=== PATIENT | female | born 1955 | race Caucasian/White ===

== ENCOUNTER 2018-12-01 09:53 | Emergency (ER) | payer BC ==
--- NOTE | 2018-12-01 10:01 | ED Physician Chart ---
ED Chief Complaint/HPI - Patient Information Date Seen:: 12/01/18 Time Seen:: 09:40 Chief Complaint:: Weakness History of Present Illness:: onset x 24 hours of H/As, weakness, unsteady gait, and paresthesias; pt denies trauma, neck pain, C/P, SOB, Abd. Pain, A/N/V/D/C, fever, chills, or urinary s/s Historian:: Patient Review:: Nurse's Note Reviewed, Old Chart Reviewed ED Review of Systems - Review of Systems General/Constitutional: No fever, No chills, No weight loss, Weakness, No diaphoresis, No edema, No loss of appetite Skin: No skin lesions, No rash, No bruising Head: Headache, No light-headedness Eyes: No loss of vision, No pain, No diplopia ENT: No earache, No nasal drainage, No sore throat, No tinnitus Neck: No neck pain, No swelling, No thyromegaly, No stiffness, No mass noted Cardio Vascular: No chest pain, No palpitations, No PND, No orthopnea, No edema Pulmonary: No SOB, No cough, No sputum, No wheezing GI: No nausea, No vomiting, No diarrhea, No pain, No melena, No hematochezia, No constipation, No hematemesis G/U: No dysuria, No frequency, No hematuria, No nacturia [employer]: No vaginal discharge, No abnormal vaginal bleed, No contraction Musculoskeletal: No bone or joint pain, No back pain, No muscle pain Endocrine: No polyuria, No polydipsia Psychiatric: No prior psych history, No depression, No anxiety, No suicidal ideation, No homicidal ideation, No auditory hallucination, No visual hallucination Hematopoietic: No bruising, No lymphadenopathy Allergic/Immuno: No urticaria, No angioedema Neurological: No syncope, No focal symptoms, Weakness, No paresthesia, Headache , No seizure, No dizziness, No confusion, No vertigo ED Past Medical History - Past Medical History Obtainable: Yes Past Medical History: HTN, Dyslipidemia, Thyroid disorder Family History: HTN Social History: Non Smoker, No Alcohol, No Drug Use, Surgical History: other (Breast Implants) Psychiatricy History: None Medication: Reviewed Family Medical History - Family Member Mother History Unknown: Yes ED Physical Exam - Physical Examination General/Constitutional: Awake, Well-developed, well-nourished, Alert, No distress, GCS 15, Non-toxic appearing, Ambulatory Head: Atraumatic Eyes: Lids, conjuctiva normal, PERRL, EOMI Skin: Nl inspection, No rash, No skin lesions, No ecchymosis, Well hydrated, No lymphadenopathy ENMT: External ears, nose nl, TM canals nl, Nasal exam nl, Lips, teeth, gums nl , Oropharynx nl, Tonsils nl Neck: Nontender, Full ROM w/o pain, No JVD, No nuchal rigidity, No bruit, No mass, No stridor Other Neck comments:: supple; no meningeal signs; no cervical tenderness; no bruits Respiratory: Nl effort/Exclusion, Clear to Auscultation, No Wheeze/Rhonchi/Rales Cardio Vascular: RRR, No murmur, gallop, rubs, NL S1 S2, Carotid/Femoral/Distal pulses equal bilaterally GI: No tenderness/rebounding/guarding, No organomegaly, No hernia, Normal BS's, Nondistended, No mass/bruits, No McBurney tenderness, Rectum exam nl Other GI comments:: no pulsatile masses : No CVA tenderness Extremities: No tenderness or effusion, Full ROM, normal strength in all extremities, No edema, Normal digits & nails Neuro/Psych: Alert/oriented, DTR's symmetric, Normal sensory exam, Normal motor strength, Judgement/insight normal, Mood normal, Normal gait Other Neuro/Psych comments:: + Left Facial Droop; decreased motor and sensory functions of left facial region , RUE, and RLE; Gait: Unsteady Misc: Normal back, No paraspinal tenderness ED Labs/Radiology/EKG Results - Lab Results Comments:: Reviewed - Radiology Results Comments:: NAD - EKG Interpretations EKG Time:: 09:57 Rate & Rhythm: 91; NSR Comments:: non-specific st-t changes ED Septic Shock - . Is Septic Shock (SBP<90, OR Lactate>4 mmol\L) present?: No ED Reassessment (Disposition) - Reassessment Reassessment Condition:: Improved - Diagnosis Diagnosis:: Weakness; Hypokalemia; Hyperlipidemia; HTN; Neurological Symptoms; TIA; CVA - Aftercare/Follow up Instructions Aftercare/Follow-Up Instructions:: Counseled pt regarding lab results/diagnosis & need follow up, Counseled pt & family regarding lab results/diagnosis & need follow up - Patient Disposition Discharge/Transfer:: Acute Care (other hosp) Accepting Physician:: Dr. Austin Time Called:: 1020 Time Responded:: 10:20 Admitted to:: ICU Spoke to:: Dr. Austin Admitting Medical Physician:: Dr. Austin Condition at Disposition:: Stable, Improved (pt to be transferred via [facility] as a direct hospital admission to [facility] Neuro ICU under Dr. Austin)
[2018-12-01 10:17] LABS: % BASOPHILS 0.3 % (0.0-2.0); % EOSINOPHILS 1.9 % (0.0-5.0); % LYMPHOCYTES 33.2 % (20.0-50.0); % MONOCYTES 7.3 % (2.0-10.0); % NEUTROPHILS 57.3 % (40.0-80.0); EOSINOPHILE ABSOLUTE 0.1 Th/cmm (0.1-0.4); HEMATOCRIT 42.6 % (41.0-60); HEMOGLOBIN 14.1 gm/dL (12-16); LYMPHOCYTE ABSOLUTE 1.7 Th/cmm (1.5-3.0); MEAN CELL VOLUME 90.2 fl (81-100); MEAN CORPUSCULAR HEMOGLOBIN 29.9 pg (27.0-31.0); MEAN CORPUSCULAR HGB CONC 33.2 pg (28.0-36.0); MONOCYTE ABSOLUTE 0.4 Th/cmm (0.3-1.0); NEUTROPHILE ABSOLUTE 2.8 Th/cmm (1.8-8.0); PLATELET COUNT 236 Th/cmm (150-400); RED BLOOD COUNT 4.73 Mil/cmm (3.80-5.10); RED CELL DISTRIBUTION WIDTH 12.6 % (11.5-20.0)
[2018-12-01 10:27] LABS: INR 0.91 (0.5-1.4)
[2018-12-01 10:34] LABS: ALB/GLOB RATIO 1.7 (1.0-1.8); ALBUMIN 4.5 gm/dL (3.7-5.3); ALKALINE PHOSPHATASE 74 U/L (34-104); BILIRUBIN,TOTAL 0.5 mg/dL (0.3-1.0); BUN - UREA NITROGEN 13 mg/dL (7-25); CALCIUM SERUM 9.4 mg/dL (8.6-10.3); CARBON DIOXIDE 25.4 mEq/L (21.0-31.0); CHLORIDE 106 mEq/L (98-107); CHOLESTEROL 133 mg/dL (<200); CREATININE - SERUM 0.8 mg/dL (0.6-1.2); CREATININE KINASE 100 U/L (30-223); GFR AFRICAN-AMERICAN > 60.0 ml/min (>90); GFR NON AFRICAN-AMERICAN > 60.0 ml/min; GLUCOSE 125 mg/dL (70-105); HDL -HIGH DENSITY LIPOPROTEIN 39 mg/dL (23-92); POTASSIUM SERUM 3.4 mEq/L (3.5-5.1); SGOT 18 U/L (13-39); SGPT/ALT 23 U/L (7-52); SODIUM SERUM 141 mEq/L (136-145); TOTAL PROTEIN,SERUM 7.1 gm/dL (6.0-8.3); TRIGLYCERIDES 225 mg/dL (<150)
--- NOTE | 2018-12-01 10:38 | Diagnostic Imaging Report ---
Portable chest x-ray History: Pain Allowing for portable technique the heart size is normal. No focal pulmonary parenchymal processes. No hilar or mediastinal abnormalities. Impression: No acute abnormalities.
--- NOTE | 2018-12-01 10:38 | Diagnostic Imaging Report ---
CT scan of the brain without contrast History: Stroke, CVA Total DLP equals 614 CTDI equals 35.2 Axial sections were obtained from the base of the skull to the vertex. There is a normal ventricular system size. No focal parenchymal lesions are seen. Basal ganglia calcification noted. No evidence of any mass effect or shift of midline structures. No extra-axial masses or abnormal fluid collections. Impression: No acute abnormalities
[2018-12-01 10:43] LABS: DDIMER QUANT < 100 ng/mL (100-400)
[2018-12-01] MEDS ORDERED: Potassium Chloride 20 mEq ER Tab PO ONE ×2 (10:43→10:53)
[2018-12-01] MEDS ORDERED: IOHEXOL 350mgI/mL 150mL IV ONE (10:49)
--- NOTE | 2018-12-01 12:04 | Diagnostic Imaging Report ---
CT angiogram of the brain with intravenous contrast HISTORY: Stroke, CVA Total DLP equals 401 CTDI equals 19.0 Following demonstration of intravenous contrast, axial sections were obtained from the base of the skull to the vertex. The exam demonstrates normal opacification of the intracavernous portions of the right and left internal carotid arteries. No abnormality seen about the [place]. No aneurysms identified. Normal appearance of the middle and anterior cerebral arteries bilaterally. Somewhat suboptimal opacification of the basilar artery. No focal lesions. No evidence of vascular malformations. No mass effect. No abnormal foci within the parenchymal regions of the brain. IMPRESSION: 1. Negative examination
--- NOTE | 2018-12-01 12:04 | Diagnostic Imaging Report ---
CT angiogram of the neck (carotid artery regions) with intravenous contrast HISTORY: Stroke, CVA Total DLP equals 401 CTDI equals 19.0 Following administration of intravenous contrast, axial sections were obtained from level of the aortic arch up through the [place]. The exam of the right common carotid artery exhibits normal opacification. No focal intraluminal abnormalities. No significant narrowing or stenosis. The right internal carotid artery exhibits normal opacification. No significant narrowing. The intracavernous portion of the right internal carotid artery appears normal. The right vertebral artery appears normal. The left common carotid artery appears normal. No intraluminal abnormalities. The left internal carotid artery appears normal with no significant narrowing or stenosis. No significant narrowing involves the left vertebral artery. No calcified atherosclerotic plaque. Preservation of normal fat planes about the major vascular landmarks of the neck. Normal fat planes about the major muscular bundles. No abnormal soft tissue masses are seen. The cervical airway appears normal. IMPRESSION: 1. No significant vascular narrowing or stenosis. 2. No other significant abnormalities.
== END 2018-12-01 12:17 | disposition short-term general hospital (02) ==
LOC: ER 09:53
DX: I10 Essential (primary) hypertension (principal); G45.9 Transient cerebral ischemic attack, unspecified; I63.9 Cerebral infarction, unspecified; E87.6 Hypokalemia; E78.5 Hyperlipidemia, unspecified; R29.90 Unspecified symptoms and signs involving the nervous system
CPT/HCPCS: 36415-UA; 70450-TC; 71045-TC; 80053-TC; 80061-TC; 82550-TC; 83880-TC; 84484-TC; 85025-TC; 85379-TC; 85610-TC; 93005; 94760